=== PATIENT | female | born 1975 | race American Indian/Alaskan Native ===

== ENCOUNTER 2018-06-16 00:13 | Emergency (ER) | payer SELFPAY ==
[2018-06-16 00:25] VITALS: BP 150/86; PULSE 91; RESP 20; TEMP 98.9; O2SAT 100
--- NOTE | 2018-06-16 00:46 | C.PDOC ---
History Of Present Illness 42-year-old female presents to the ED for evaluation of left ear pain which began around 1.5 weeks ago. Patient states she [place] [facility] [place], where her ear was debrided and wax was disimpacted. Patient has been applying Debrox ear drops without significant relief. She denies fever, chills, or ear discharge, no headache or dizziness. Time Seen by Provider: 06/16/18 00:30 Chief Complaint (Nursing): ENT Problem History Per: Patient History/Exam Limitations: None Onset/Duration Of Symptoms: Days Current Symptoms Are (Timing): Still Present Quality (Ear): Pain W/Touch (left) Past Medical History Reviewed: Historical Data, Nursing Documentation, Vital Signs Vital Signs: Last Vital Signs Temp 98.9 F 06/16/18 00:22 Pulse 91 H 06/16/18 00:22 Resp 20 06/16/18 00:22 BP 150/86 06/16/18 00:22 Pulse Ox 100 06/16/18 04:40 - Medical History PMH: HTN Surgical History: No Surg Hx Family History: States: Unknown Family Hx - Social History Hx Alcohol Use: Yes Hx Substance Use: No Review Of Systems Constitutional: Negative for: Fever, Chills ENT: Positive for: Ear Pain (left). Negative for: Ear Discharge Physical Exam - Physical Exam Appears: Non-toxic, No Acute Distress Skin: Normal Color, Warm, Dry Head: Atraumatic, Normacephalic, No Tenderness (tragus ) Eye(s): bilateral: Normal Inspection Ear(s): Left: TM Obscured By Wax, Right: Normal Oral Mucosa: Moist Neck: Supple Extremity: Normal ROM Neurological/Psych: Oriented x3, Normal Speech, Normal Cognition ED Course And Treatment O2 Sat by Pulse Oximetry: 100 (on RA ) Pulse Ox Interpretation: Normal Progress Note: Motrin PO given. On re-exam, patient is resting comfortably, showing no signs of distress and reports an improvement in her symptoms. Patient is adivsed to follow up with ENT within 1-2 days for further evaluation. Disposition Counseled Patient/Family Regarding: Diagnosis, Need For Followup, Rx Given - Disposition Referrals: Wilfredo Randolph MD [Staff Provider] - Disposition: HOME/ ROUTINE Disposition Time: 00:44 Condition: STABLE Additional Instructions: Please follow up with ENT doctor Take motrin PO Return to ER if worse Prescriptions: Ibuprofen [Motrin] 600 mg PO Q6H #20 tab Instructions: Ear Wax Impaction (DC) Forms: [employer] (I[place]ic) - Clinical Impression Clinical Impression: Impacted cerumen of left ear - PA / [employer] HEL[employer] / Resident Statement MD/DO has reviewed & agrees with the documentation as recorded. - Scribe Statement The provider has reviewed the documentation as recorded by the Scribe (Lidia Fields) All medical record entries made by the Scribe were at my direction and personally dictated by me. I have reviewed the chart and agree that the record accurately reflects my personal performance of the history, physical exam, medical decision making, and the department course for this patient. I have also personally directed, reviewed, and agree with the discharge instructions and disposition.
== END 2018-06-16 00:53 | disposition home or self-care (01) ==
LOC: C.ER 00:13
DX: H61.22 Impacted cerumen, left ear (principal)